=== PATIENT | female | born 1940 | race Caucasian/White ===

== ENCOUNTER → 2021-10-14 | Outpatient (CLI) | payer MEDICARE, BC ==
[~2021-10-14] MED LIST: AVAPRO TAB150 MG/TAB PO; LOPID600 M1 PO; PREDNISONE10 MG; RESTORIL30 M1 PO; ZOCOR40 M1 PO; ZYRTEC10 M3 PO
== END ==
LOC: RAD 13:47
DX: M48.061 Spinal stenosis, lumbar region without neurogenic claudication (principal); M47.816 Spondylosis without myelopathy or radiculopathy, lumbar region; M48.05 Spinal stenosis, thoracolumbar region

== ENCOUNTER 2022-01-01 08:53 | Outpatient (RCR) | payer MEDICARE, BC | END 2022-01-05 | disposition home or self-care (01) | LOC: PT | DX: M25.551 Pain in right hip (principal) ==

== ENCOUNTER 2022-01-07 07:47 | Outpatient (RCR) | payer MEDICARE, BC | END 2022-02-05 | disposition home or self-care (01) | LOC: PT | DX: M25.551 Pain in right hip (principal); Z96.641 Presence of right artificial hip joint ==

== ENCOUNTER 2022-03-10 08:00 | Outpatient (RCR) | payer MEDICARE, BC | END 2022-04-07 | disposition still patient (30) | LOC: PT | DX: M25.551 Pain in right hip (principal); Z96.641 Presence of right artificial hip joint ==

== ENCOUNTER 2022-04-09 08:00 | Outpatient (RCR) | payer MEDICARE, BC | END 2022-05-07 | disposition still patient (30) | LOC: PT | DX: M25.551 Pain in right hip (principal) ==

== ENCOUNTER 2024-08-21 15:57 | Emergency (ER) | payer MEDICARE, BC ==
[~2024-08-21] VITALS: Ht 170.2 cm; Wt 86.2 kg
[2024-08-21] MEDS ORDERED: LOSARTAN PO (16:08)
[2024-08-21 16:51] LABS: BASO # 0.03 K/mm3 (0.02-0.10); EOS # 0.37 K/mm3 (0.04-0.40); HEMATOCRIT 35.5 % (37.0-47.0); HEMOGLOBIN 11.7 g/dL (12.5-16.0); LYMPH# 1.58 K/mm3 (1.50-4.00); MEAN CELL VOLUME 94 fl (78-100); MEAN CORPUSCULAR HEMOGLOBIN 31 pg (27-31); MEAN CORPUSCULAR HGB CONC 33 g/dL (33-37); MEAN PLATELET VOLUME 10.4 fl (7.4-10.4); MONO # 0.46 K/mm3 (0.20-0.80); NEU # 2.79 K/mm3 (1.40-6.50); PLATELET COUNT 223 K/mm3 (130-400); RED BLOOD COUNT 3.76 M/mm3 (4.10-5.30); WHITE BLOOD COUNT 5.3 K/mm3 (4.8-10.8)
[2024-08-21 16:59] LABS: ALBUMIN 4.4 g/dL (3.4-4.8); SODIUM 142 mmol/L (136-145)
[2024-08-21 17:01] LABS: GLUCOSE 96 mg/dL (65-105); TOTAL PROTEIN 7.2 g/dL (6.2-8.1)
[2024-08-21 17:02] LABS: CARBON DIOXIDE 21 mmol/L (23-31); PROTHROMBIN TIME 10.6 SECONDS (9.0-12.0)
[2024-08-21 17:03] LABS: TOTAL BILIRUBIN 0.3 mg/dL (0.2-1.2)
[2024-08-21 17:07] LABS: AST-SGOT 23 U/L (5-34)
[2024-08-21 17:08] LABS: ALT/SGPT 17 U/L (0-55)
[2024-08-21 17:21] LABS: TROPONIN-I < 0.030 ng/mL (0.00-0.033)
[2024-08-21 18:53] VITALS: BP 143/76
== END 2024-08-21 18:56 | disposition home or self-care (01) ==
LOC: ED 15:57
PROVIDERS: Physician Assistant
DX: R07.89 Other chest pain (principal)